=== PATIENT | female | born 1995 | race Caucasian/White ===

== ENCOUNTER 2024-07-28 12:05 | Outpatient (CLI) | payer BC ==
[~2024-07-28] VITALS: Ht 165.1 cm; Wt 85.2 kg
[2024-07-28] MEDS ORDERED: ALDACTONE 25MG25 M1 PO (12:36)
[2024-07-28] MEDS ORDERED: LIPITOR 40MG TA40 MG PO (12:37)
[2024-07-28] MEDS ORDERED: CELEXA10 MG PO (12:37)
[2024-07-28] MEDS ORDERED: HYGROTON 2525 MG/TAB (12:38)
[2024-07-28] MEDS ORDERED: NORVASC 10MG10 MG PO (12:38)
[2024-07-28] MEDS ORDERED: COZAAR100 MG PO (12:39)
[2024-07-28 12:41] VITALS: BP 127/73; PULSE 82; TEMP 97.8
[2024-07-28 13:38] VITALS: BP 130/66; PULSE 67
[2024-07-28 14:00] VITALS: BP 114/65; PULSE 56
[2024-07-28 14:15] VITALS: BP 126/70; PULSE 69
[2024-07-28 14:30] VITALS: BP 127/73; PULSE 59
[2024-07-28 14:30] LABS: GLUCOSE,CSF 53 mg/dL (40-70); TOTAL PROTEIN,CSF 23 mg/dL (15-45)
[2024-07-28 14:45] VITALS: BP 121/71; PULSE 63
[2024-07-28 14:45] LABS: CSF APPEARANCE CLEAR; CSF COLOR COLORLESS
[2024-07-28 14:46] LABS: CSF RBC 1 /mm3 (0-0)
[2024-07-28 15:14] LABS: CSF MONONUCLEAR 100 % (70-100); CSF POLYMORPHONUCLEAR 0 % (0-6)
[2024-07-31 08:44] LABS: LYME DISEASE ANTIBODIES Negative (Negative)
== END 2024-07-28 14:50 | disposition home or self-care (01) ==
LOC: COL.RAD 12:05
PROVIDERS: Nurse Practitioner
DX: I69.359 Hemiplegia and hemiparesis following cerebral infarction affecting unspecified side (principal); E78.5 Hyperlipidemia, unspecified